=== PATIENT | male | born 1990 | race Hispanic/Latino ===

== ENCOUNTER 2017-12-29 00:02 | Emergency (ER) | payer SELFPAY ==
[2017-12-29] MEDS ORDERED: HALDOL IM PRN (00:34)
[2017-12-29] MEDS ORDERED: ATIVAN IM PRN (00:34)
--- NOTE | 2017-12-29 00:34 | Emergency Department Report ---
ED General Adult HPI - General Chief complaint: Overdose Stated complaint: POSS OD Time Seen by Provider: 12/29/17 00:24 Source: patient, family, EMS (verbal report received from EMS.ems notes not available at time of chart dictation) Mode of arrival: Stretcher Limitations: Other (patient is intoxicated) - History of Present Illness Initial comments: This is a 27-year-old gentleman. The patient is not known to this provider previously. Patient has a history of chronic pain. He is accompanied by his father. Patient's father indicates that he has been with the patient this evening, went out to a store while they were in the car, and came back to the car and found the patient to be unresponsive and not breathing very well. 911 was contacted. EMS verbally reported that the patient was breathing quite shallowly and sonorously. Patient was given 2 mg of Narcan in the field which improved his breathing and mental status. There is no history of antecedent trauma. Patient indicates he took a Roxicodone, 5 mg and combined with alcohol. He indicates that he is not currently homicidal or suicidal. He does not have hallucinations. He has chronic back pain. He has no other complaints. His father independently corroborates that he is not concerned about a homicidal or suicidal intent. -: Sudden Improves with: immobilization, medication Associated Symptoms: loss of appetite, malaise. denies: confusion, chest pain, cough, diaphoresis, fever/chills, headaches, nausea/vomiting, rash, seizure, shortness of breath, syncope - Related Data Previous Rx's Medication Instructions Recorded Last Taken Type Naloxone HCl [Narcan Nasal [place]] 4 mg NS Q1HR PRN #4 spray 12/29/17 Unknown Rx Allergies Allergy/AdvReac Type Severity Reaction Status Date / Time No Known Allergies Allergy Unverified 12/29/17 00:27 ED Review of Systems ROS: Stated complaint: POSS OD Other details as noted in HPI Constitutional: malaise. denies: fever Eyes: denies: eye discharge ENT: denies: epistaxis Respiratory: denies: cough Cardiovascular: denies: chest pain Gastrointestinal: denies: abdominal pain Genitourinary: denies: dysuria Musculoskeletal: back pain (, chronic) Psychiatric: depression. denies: homicidal thoughts, suicidal thoughts ED Past Medical Hx - Past Medical History Previous Medical History?: No Hx Hypertension: No - Social History Smoking Status: Current Every Day Smoker Substance Use Type: Alcohol - Medications Home Medications: Home Medications Medication Instructions Recorded Confirmed Last Taken Type Naloxone HCl [Narcan Nasal [place]] 4 mg NS Q1HR PRN #4 spray 12/29/17 Unknown Rx ED Physical Exam - General Limitations: Other (patient is intoxicated) General appearance: appears intoxicated - Head Head exam: Present: atraumatic, normocephalic - Eye Eye exam: Present: normal appearance, EOMI - ENT ENT exam: Present: normal exam, normal orophraynx, mucous membranes moist, normal external ear exam - Neck Neck exam: Present: normal inspection, full ROM. Absent: tenderness, meningismus - Respiratory Respiratory exam: Present: normal lung sounds bilaterally. Absent: respiratory distress - Cardiovascular Cardiovascular Exam: Present: regular rate, normal rhythm, normal heart sounds. Absent: bradycardia, tachycardia, irregular rhythm, systolic murmur, diastolic murmur, rubs, gallop - GI/Abdominal GI/Abdominal exam: Present: soft. Absent: distended, tenderness, guarding, rebound, rigid, pulsatile mass - Rectal Rectal exam: Present: deferred - Extremities Exam Extremities exam: Present: normal inspection, full ROM. Absent: pedal edema, joint swelling, calf tenderness - Back Exam Back exam: Present: normal inspection, full ROM. Absent: tenderness, CVA tenderness (R), paraspinal tenderness, vertebral tenderness - Neurological Exam Neurological exam: Present: alert, oriented X3, CN II-XII intact, other ( Extraocular movements intact. Tongue midline. No facial droop. Facial sensation intact to light touch in the V1, V2, V3 distribution bilaterally. 5 and 5 strength in 4 extremities.. Sensation is intact to light touch in 4 extremities.). Absent: motor sensory deficit - Psychiatric Psychiatric exam: Present: depressed, anxious. Absent: homicidal ideation, suicidal ideation - Skin Skin exam: Present: warm, dry, intact, normal color. Absent: rash ED Course Vital Signs 12/29/17 12/29/17 12/29/17 00:18 00:30 00:45 Temperature Pulse Rate Respiratory Rate Blood Pressure 118/92 118/92 O2 Sat by Pulse 94 96 94 Oximetry 12/29/17 12/29/17 12/29/17 01:01 01:15 01:30 Temperature Pulse Rate 89 86 Respiratory 25 H 15 Rate Blood Pressure 126/78 124/82 106/84 O2 Sat by Pulse 96 92 Oximetry 12/29/17 12/29/17 12/29/17 01:49 02:00 02:15 Temperature Pulse Rate 71 81 64 Respiratory 12 12 10 L Rate Blood Pressure 106/84 116/80 116/80 O2 Sat by Pulse Oximetry 12/29/17 12/29/17 12/29/17 02:30 02:45 03:00 Temperature Pulse Rate 70 73 67 Respiratory 14 18 12 Rate Blood Pressure 96/59 101/69 103/69 O2 Sat by Pulse Oximetry 12/29/17 12/29/17 12/29/17 03:15 03:30 03:45 Temperature Pulse Rate 74 75 56 L Respiratory 9 L 13 12 Rate Blood Pressure 96/60 99/71 87/50 O2 Sat by Pulse Oximetry 12/29/17 12/29/17 12/29/17 04:00 04:15 04:24 Temperature 97.6 F Pulse Rate 58 L 64 Respiratory 16 15 Rate Blood Pressure 108/66 101/65 O2 Sat by Pulse Oximetry - Reevaluation(s) Reevaluation #1: 12/29/17 00:42 Differential diagnosis, including but not limited to: Accidental overdose Assessment and plan: 27-year-old male complaining narcotics and alcohol. He is not currently homicidal or suicidal. His father corroborates this. He is calm and cooperative. We will check serum toxicology studies, EKG, placed the patient on a desk monitor with pulse oximetry and observed. Reevaluation #2: 12/29/17 01:49 Reassessment. No airway distress. Vital signs remain stable. Reevaluation #3: 12/29/17 03:47 No airway distress. Resting comfortably. Vital signs a monitor remained stable. Reevaluation #4: 12/29/17 05:02 Patient is observed in the ER for 5 hours without clinical decompensation. He is afebrile with reassuring vital signs and he is clinically sober at this time. He is motivated to discontinue and wean himself off narcotics. He expresses apologies for his behavior. His father indicates that he feels safe to take the patient home. Patient will be discharged with a Narcan prescription. I explained to the patient and father how and when this medication should be used and both verbalize understanding. ED Medical Decision Making - Lab Data Result diagrams: 12/29/17 00:47 12/29/17 00:47 Vital Signs 12/29/17 00:18 O2 Sat by Pulse 94 Oximetry Labs 12/29/17 12/29/17 00:47 00:47 WBC 5.4 RBC 4.81 Hgb 16.4 H Hct 47.2 H MCV 98 H MCH 34 H MCHC 35 H RDW 13.1 L Plt Count 214 Sodium 146 H Potassium 4.3 Chloride 105.2 Carbon Dioxide 25 Anion Gap 20 BUN 7 L Creatinine 0.8 Estimated GFR > 60 BUN/Creatinine Ratio 9 Glucose 109 H Calcium 8.6 - EKG Data -: EKG Interpreted by Nm EKG shows normal: sinus rhythm, axis, intervals, QRS complexes, ST-T waves Rate: normal - EKG Data When compared to previous EKG there are: previous EKG unavailable Interpretation: normal EKG Critical care attestation.: If time is entered above; I have spent that time in minutes in the direct care of this critically ill patient, excluding procedure time. ED Disposition Clinical Impression: Overdose, Alcohol intoxication Disposition: DC-01 TO HOME OR SELFCARE Is pt being admited?: No Does the pt Need Aspirin: No Condition: Stable Instructions: Polysubstance Abuse (ED) Additional Instructions: Cannot combine alcohol with sedating medications such as oxycodone, Percocet, Xanax, Valium. Combination of the aforementioned may result in respiratory depression which can cause , disability, paralysis, loss of quality of life. Use the Narcan medication as directed, and follow-up with the primary care doctor or psychiatrist within the next 2-3 weeks for further evaluation and management. Right away with fevers, chills, lethargy, irritability, projectile vomiting, change in mental status, confusion, inability to tolerate liquid feeds. Referrals: [facility] [Provider Group] - 3-5 Days [facility] [Outside] - 3-5 Days
[2017-12-29 00:54] LABS: Hematocrit 47.2 % (35.5-45.6); Hemoglobin 16.4 gm/dl (11.8-15.2); Mean Corpuscular HGB Conc 35 % (32-34); Mean Corpuscular Hemoglobin 34 pg (28-32); Mean Corpuscular Volume 98 fl (84-94); Platelet Count 214 K/mm3 (140-440); Red Blood Count 4.81 M/mm3 (3.65-5.03); Red Cell Distribution Width 13.1 % (13.2-15.2)
[2017-12-29 01:09] LABS: BUN/Creatinine Ratio 9; Blood Urea Nitrogen 7 mg/dL (9-20); Calcium 8.6 mg/dL (8.4-10.2); Hemolysis Index 26
[2017-12-29 05:23] VITALS: BP 90/47
== END 2017-12-29 05:23 | disposition home or self-care (01) ==
LOC: ED 00:02
DX: T40.2X1A Poisoning by other opioids, accidental (unintentional), initial encounter (principal); F10.129 Alcohol abuse with intoxication, unspecified; G89.29 Other chronic pain; M54.9 Dorsalgia, unspecified; F17.200 Nicotine dependence, unspecified, uncomplicated; Y92.89 Other specified places as the place of occurrence of the external cause
CPT/HCPCS: 36415; 80048; 82550; 83735; 85027; 93005; 93010; 99284; G0480; 80320